=== PATIENT | male | born 1950 | race Caucasian/White ===

== ENCOUNTER → 2019-12-20 11:35 | Outpatient (CLI) | payer MEDICARE, OTHER, SELFPAY ==
[2019-12-20 11:57] LABS: Add Manual Diff / Slide Review NO; Basophils Absolute Auto 100 /uL (0-100); Basophils Percent Auto 1.2 % (0-2); Eosinophils Absolute Auto 300 /uL (0-450); Eosinophils Percent Auto 4.2 % (2-4); Hematocrit 43.1 % (41-53); Hemoglobin 15.1 g/dL (13.5-17.5); Lymphocytes Absolute Auto 2900 /uL (1100-4500); Lymphocytes Percent Auto 35.7 % (25-40); Mean Corpuscular Volume 88.8 fL (80-100); Monocytes Absolute Auto 500 /uL (0-900); Monocytes Percent Auto 6.7 % (3-14); Neutrophils Absolute Auto 4200 /uL (1500-7000); Neutrophils Percent Auto 52.2 % (50-75); Platelet Count 166 X10^3/uL (150-400); Red Blood Cell Count 4.86 X10^6/uL (4.5-5.9)
[2019-12-20 12:09] LABS: Alanine Aminotransferase 33 IU/L (<50); Albumin 4.4 g/dL (3.5-5.0); Albumin Globulin Ratio 1.4 (1.0-2.8); Alkaline Phosphatase 170 U/L (38-126); Aspartate Aminotransferase 34 IU/L (17-59); BUN Creatinine Ratio 17.6 (6-22); Blood Urea Nitrogen 12 mg/dL (9-20); Calcium 9.4 mg/dL (8.4-10.2); Carbon Dioxide 28 mmol/L (22-32); Chloride 99 mmol/L (98-107); Cholesterol 140 mg/dL (140-199); Estimated Glomerular Filt Rate > 60.0 mL/min (>60); Globulin 3.2 g/dL (1.7-4.1); Glucose 402 mg/dL (80-110); HDL Cholesterol 31 mg/dL (40-60); HEMOLYSIS < 15 (0-50); LDL Cholesterol Calculated 54 mg/dL (<100); Potassium 4.6 mmol/L (3.4-5.1); Sodium 135 mmol/L (137-145); Total Protein 7.6 g/dL (6.3-8.2); Triglycerides 273 mg/dL (35-150)
--- NOTE | 2019-12-20 13:22 | DI.CT.S_ITS ---
PROCEDURE: CT ABDOMEN PELVIS W CON INDICATIONS: Non-Hodgkins Lymphoma TECHNIQUE: After the administration of oral and intravenous contrast, 5 mm thick sections acquired from the diaphragms to the symphysis. 5 mm thick coronal and sagittal reformats were performed. For radiation dose reduction, the following was used: automated exposure control, adjustment of mA and/or kV according to patient size. COMPARISON: Prior studies are not available for comparison at this time. FINDINGS: Image quality: Excellent. ABDOMEN: Lung bases: Lung bases are clear. Heart size is normal. Pacemaker leads are seen in the region of right atrium and right ventricle, no pericardial effusion. Median sternotomy wires are also noted. Solid organs: Liver is normal in size. Mild hepatic steatosis is seen, no discrete hepatic lesion. Gallbladder is surgically absent. Biliary system is non-dilated. Pancreas enhances normally. Spleen is normal in size and enhancement. No adrenal nodules. Kidneys are normal in size and enhancement, without hydronephrosis. Peritoneum and bowel: There is a small hiatal hernia. Appendix is visualized and is within normal limits. Mild sigmoid diverticulosis is seen, no CT evidence of acute diverticulitis. Stomach, small bowel, and colon loops are normal in caliber and wall thickness. No free fluid or air. Nodes and vessels: No retroperitoneal or mesenteric adenopathy by size criteria are. Aorta and inferior vena cava are normal in caliber. Miscellaneous: Multiple right and left anterior abdominal wall defects are seen measures up to 5.7 cm in width in upper abdomen with herniation sacs containing fat only. PELVIS: Genitourinary: Bladder wall thickness is normal. Miscellaneous: No inguinal hernias or adenopathy by size criteria or. Subcentimeter lymph nodes are seen scattered in bilateral inguinal region measures up to 7 mm in short axis diameter.. Bones: No suspicious bony lesions. No vertebral body compression fractures. IMPRESSION: 1. No pathologically enlarged lymph nodes are seen in abdomen or pelvis on the current study. 2. Mild hepatic steatosis, no discrete hepatic lesion. Prior cholecystectomy. 3. Mild sigmoid diverticulosis, no CT evidence of acute diverticulitis. Small hiatal hernia. Normal appendix. No free fluid or free air. 4. Ventral hernia in the upper abdomen containing anterior wall of the distal stomach and fat. Additional anterior abdominal wall defects with multiple ventral hernias containing fat only. Dictated by: Bipin Dye M.D. on 12/25/2019 at 9:47 Approved by: Bipin Dye M.D. on 12/25/2019 at 10:06
[2019-12-20 13:31] LABS: TSH w/ Reflex to FT4 1.21 uIU/mL (0.47-4.68)
== END ==
PROVIDERS: Referring Provider Internal Medicine; Visit Provider Internal Medicine
DX: C85.83 Other specified types of non-Hodgkin lymphoma, intra-abdominal lymph nodes (principal); I47.2 Ventricular tachycardia; E78.2 Mixed hyperlipidemia; K76.0 Fatty (change of) liver, not elsewhere classified; K44.9 Diaphragmatic hernia without obstruction or gangrene; K57.30 Diverticulosis of large intestine without perforation or abscess without bleeding; K43.9 Ventral hernia without obstruction or gangrene; Z90.49 Acquired absence of other specified parts of digestive tract; Z95.0 Presence of cardiac pacemaker
CPT/HCPCS: 36415; 74177; 80053; 80061; 84443; 85025; Q9967

== ENCOUNTER 2023-09-12 12:58 | Day surgery (SDC) | payer MEDICARE, OTHER, SELFPAY ==
--- NOTE | 2023-09-12 | PATH_ITS ---
[facility] Accession Number: [id number] No. of containers..01 Tissue . 01 Material submitted: . colon - DESCENDING POLYP . 01 Diagnosis: DESCENDING COLON, POLYP: Tubular adenoma. [facility] 09/14/2023 1112 Local . 01 Electronically signed: . Hoa Leiva MD, Pathologist NPI- [id number] . 01 Gross description: . DESCENDING POLYP: Received in formalin is 1 fragment(s) of durbin, soft tissue measuring 0.8 x 0.6 x 0.4 cm submitted entirely in 1 cassette(s) /EM 09/13/20232038 Local . 01 Pathologist provided ICD-10: D12.4 . 01 CPT . 529511 Specimen Comment: A courtesy copy of this report has been sent to [phone] Performed at: 01 [facility] [address] [place] [address], [place], [place] [id number] MD Roland aBrajas MD Phone: [phone]
[2023-09-12 14:55] VITALS: BP 127/69; PULSE 61; RESP 12; TEMP 36.3; O2SAT 98
[2023-09-12] MEDS: LACTATED RINGERS 1,000 ML 42 ML IV (15:06)
--- NOTE | 2023-09-12 15:41 | P.OP.COLON_ITS ---
Operative Date/Time/Diagnoses Date of procedure: 09/12/23 Time of procedure: 15:54 Pre-op diagnosis: Colorectal screening Procedure & Clinicians Study performed: Colonoscopy Same procedure as scheduled: Yes Indications: Colorectal screening Surgeon: Bautista Bonilla Procedure Notes Procedure in detail: The history and physical was performed/updated and the patient is ASA class is 2. The procedure was discussed in detail with the patient. Potential risks complications including infection, bleeding, missed diagnosis, perforation, need for surgery, and were explained. Their questions were answered and informed consent was obtained. Patient was brought to the procedure room and placed standard monitoring equipment. The patient's vital signs were monitored continuously throughout the entire procedure. Prior to starting time-out was performed. The patient was placed in the left lateral recumbent position. Procedural sedation was administered by anesthesia. Examination began with a thorough inspection of the perianal area there was no evidence of fissures, fistulae, external hemorrhoids or cutaneous malignancy. The colonoscopy scope was then placed into the anal canal and was advanced to the cecum, which was identified by the ileocecal valve , the appendiceal orifice and the confluence of the taenia. The scope was then slowly withdrawn examining colon thoroughly in all directions, irrigating it of any residual stool. The scope was retroflexed within the rectum The patient tolerated the procedure well. They will be discharged once criteria are met. The prep was of good/excellent quality. The withdrawl time was 9 minutes. FINDINGS * Descending colon polyp-3-5 mm removed with biopsy forceps * Internal hemorrhoids Specimen(s): other (Descending colonic polyp) Impression: Colonic polyp x1 Post-procedure Plan for aftercare: Follow-up is dependent on pathology findings Disposition: same day surgery
--- NOTE | 2023-09-12 15:41 | PM.HP.1 ---
History of Present Illness History of Present Illness Date Patient Seen: 09/12/23 Time Patient Seen: 15:41 Chief complaint: SDC Narrative: 73-year-old man here for screening colonoscopy. No previous colonoscopy he perhaps had sigmoidoscopy in the remote past. No abdominal concerns. No family history of intestinal malignancy. [facility] Medical History (Updated 09/12/23 @ 14:47 by Irvin Mcarthur RN) Diabetes mellitus, type 2 ICD (implantable cardioverter-defibrillator) in place Hyperlipidemia Hypertension Myocardial infarct Retroperitoneal sarcoma Surgical History (Updated 09/12/23 @ 14:47 by Irvin Mcarthur RN) Hx of cholecystectomy S/P triple vessel bypass Social History Smoking Status: Former smoker alcohol intake: never Meds Home Medications and Allergies Home Medications Medication Instructions Recorded Confirmed Type aspirin 81 mg capsule 81 mg PO DAILY 09/12/23 09/12/23 History carvedilol 3.125 mg tablet 3.125 mg PO BID 09/12/23 09/12/23 History enalapril maleate 2.5 mg tablet 2.5 mg PO DAILY 09/12/23 09/12/23 History ezetimibe 10 mg tablet 10 mg PO DAILY 09/12/23 09/12/23 History metformin 1,000 mg tablet 1,000 mg PO BID 09/12/23 09/12/23 History rosuvastatin 40 mg tablet 40 mg PO DAILY 09/12/23 09/12/23 History Allergies Allergy/AdvReac Type Severity Reaction Status Date / Time Penicillins Allergy Unknown childhood Verified 09/12/23 14:43 rxn Exam Vital Signs (past 8 hours): - 09/12/23 14:55 Temperature 97.3 F L Pulse Rate 61 Respiratory Rate 12 Blood Pressure 127/69 Pulse Oximetry 98 Oxygen Delivery Method Room Air Oxygen Delivery Method Room Air Narrative Exam Narrative: General adult man alert oriented no acute distress Chest nonlabored respiration Extremities warm well perfused Assessment & Plan Assessment & Plan narrative: The patient requires colorectal screening and colonoscopy is recommended. Technical details were discussed. Risks, benefits, alternatives explained. Risks including but not limited to myocardial infarction, aspiration, bleeding, pain, missed lesion, incomplete examination, need for further radiographic studies, colonic perforation, and need for major abdominal surgery were discussed. All questions were answered to their satisfaction, and they are in agreement with this plan.
[2023-09-12 16:12] VITALS: BP 100/60; PULSE 66; RESP 16; TEMP 37; O2SAT 96
[2023-09-12 16:17] VITALS: BP 101/63; PULSE 62; RESP 18; O2SAT 96
[2023-09-12 16:22] VITALS: BP 115/71; PULSE 71; RESP 18; TEMP 36.4; O2SAT 96
[2023-09-12 16:27] VITALS: BP 132/75; PULSE 64; RESP 18; O2SAT 97
== END 2023-09-12 16:40 | disposition home or self-care (01) ==
PROVIDERS: PCP Internal Medicine; Referring Provider Surgery; Visit Provider Surgery
PROC: 0DJD8ZZ Inspection of Lower Intestinal Tract, Via Natural or Artificial Opening Endoscopic (ICD-10-PCS; CPT 45378; principal; 2023-09-12 14:00)
DX: Z12.11 Encounter for screening for malignant neoplasm of colon (principal); K64.8 Other hemorrhoids; D12.4 Benign neoplasm of descending colon
CPT/HCPCS: 45380; J2704

== ENCOUNTER → 2023-11-07 09:54 | Outpatient (CLI) | payer MEDICARE, SELFPAY ==
[2023-11-07 10:34] LABS: Hematocrit 40.1 % (41-53); Hemoglobin 13.7 g/dL (13.5-17.5); Mean Corpuscular HGB Conc 34.2 % (30-36); Mean Corpuscular Hemoglobin 31.4 PG (26-34); Platelet Count 195 X10^3/uL (150-400); Red Blood Cell Count 4.36 X10^6/uL (4.5-5.9); Red Cell Distribution Width 13.9 % (11.6-14.8); White Blood Cell Count 7.7 X10^3/uL (4.5-11.0)
[2023-11-07 10:43] LABS: Hemoglobin A1C% w Est Avg Glu 7.3 % (4.0-6.0)
[2023-11-07 10:48] LABS: HEMOLYSIS < 15 (0-50)
[2023-11-07 11:01] LABS: Alanine Aminotransferase 106 IU/L (<50); Albumin 4.6 g/dL (3.5-5.0); Albumin Globulin Ratio 1.8 (1.0-2.8); Alkaline Phosphatase 94 U/L (38-126); Aspartate Aminotransferase 97 IU/L (17-59); BUN Creatinine Ratio 21.3 (6-22); Bilirubin Total 2.2 mg/dL (0.2-1.3); Blood Urea Nitrogen 19 mg/dL (9-20); Calcium 9.8 mg/dL (8.4-10.2); Carbon Dioxide 25 mmol/L (22-32); Chloride 106 mmol/L (98-107); Cholesterol 99 mg/dL (140-199); Estimated Glomerular Filt Rate > 60 mL/min (>60); Globulin 2.6 g/dL (1.7-4.1); Glucose 139 mg/dL (80-110); HDL Cholesterol 34 mg/dL (40-60); LDL Cholesterol Calculated 25 mg/dL (<100); Potassium 4.6 mmol/L (3.4-5.1); Sodium 139 mmol/L (137-145); Total Protein 7.2 g/dL (6.3-8.2); Triglycerides 198 mg/dL (35-150)
[2023-11-07 11:25] LABS: TSH w/ Reflex to FT4 0.84 uIU/mL (0.47-4.68)
[2023-11-07 11:26] LABS: Creatinine Urine Random 92.3 mg/dL
[2023-11-07 11:31] LABS: Microalbumi Creatinin Ratio Ur 165.7 ug/mg CR (<30); Microalbumin Urine Random 15.3 mg/dL (0-1.6)
[2023-11-07 20:11] LABS: Prostate Specific Antigen 0.608 ng/mL (0.10-4.00)
[2023-11-07 20:30] LABS: Vitamin B12 389 pg/mL (239-931)
== END ==
PROVIDERS: PCP Internal Medicine; Referring Provider Internal Medicine; Visit Provider Internal Medicine
DX: C48.0 Malignant neoplasm of retroperitoneum (principal); E11.69 Type 2 diabetes mellitus with other specified complication; I25.10 Atherosclerotic heart disease of native coronary artery without angina pectoris; N40.1 Benign prostatic hyperplasia with lower urinary tract symptoms; E78.5 Hyperlipidemia, unspecified; E53.8 Deficiency of other specified B group vitamins; N13.8 Other obstructive and reflux uropathy
CPT/HCPCS: 36415; 80053; 80061; 82043; 82570; 82607; 83036; 84153; 84443; 85027

== ENCOUNTER → 2023-11-16 10:09 | Outpatient (CLI) | payer MEDICARE, OTHER, SELFPAY ==
[2023-11-16 12:41] LABS: Alanine Aminotransferase 69 IU/L (<50); Albumin 4.7 g/dL (3.5-5.0); Albumin Globulin Ratio 1.7 (1.0-2.8); Alkaline Phosphatase 81 U/L (38-126); Aspartate Aminotransferase 57 IU/L (17-59); Bilirubin Unconjugated 1.8 mg/dL (0.0-1.1); Gamma Glutamyl Transpeptidase 35 U/L (15-73); Globulin 2.8 g/dL (1.7-4.1); HEMOLYSIS < 15 (0-50); Total Protein 7.5 g/dL (6.3-8.2)
[2023-11-18 01:16] LABS: HBsAg Screen Negative (Negative); Hepatitis A Antibody IgM Negative (Negative); Hepatitis B Core Antibody IgM Negative (Negative); Hepatitis C Antibody Non Reactive (Non Reactive)
== END ==
PROVIDERS: PCP Internal Medicine; Referring Provider Internal Medicine; Visit Provider Internal Medicine
DX: R79.89 Other specified abnormal findings of blood chemistry (principal)
CPT/HCPCS: 36415; 80074; 80076; 82977

== ENCOUNTER → 2024-05-08 08:56 | Outpatient (CLI) | payer MEDICARE, SELFPAY ==
[2024-05-08 10:02] LABS: Hemoglobin A1C% w Est Avg Glu 6.8 % (4.0-6.0)
[2024-05-08 10:16] LABS: Alanine Aminotransferase 81 IU/L (<50); Albumin 4.2 g/dL (3.5-5.0); Albumin Globulin Ratio 1.7 (1.0-2.8); Alkaline Phosphatase 77 U/L (38-126); Aspartate Aminotransferase 66 IU/L (17-59); Bilirubin Total 1.4 mg/dL (0.2-1.3); Blood Urea Nitrogen 18 mg/dL (9-20); Calcium 10.1 mg/dL (8.4-10.2); Carbon Dioxide 30 mmol/L (22-32); Chloride 100 mmol/L (98-107); Estimated Glomerular Filt Rate > 60 mL/min (>60); Globulin 2.5 g/dL (1.7-4.1); Glucose 137 mg/dL (80-110); HEMOLYSIS < 15 (0-50); Potassium 4.9 mmol/L (3.4-5.1); Sodium 137 mmol/L (137-145); Total Protein 6.7 g/dL (6.3-8.2)
== END ==
PROVIDERS: PCP Internal Medicine; Referring Provider Internal Medicine; Visit Provider Internal Medicine
DX: R79.89 Other specified abnormal findings of blood chemistry (principal); E11.69 Type 2 diabetes mellitus with other specified complication; I25.810 Atherosclerosis of coronary artery bypass graft(s) without angina pectoris; I10 Essential (primary) hypertension; E78.2 Mixed hyperlipidemia
CPT/HCPCS: 36415; 80053; 83036

== ENCOUNTER → 2024-05-14 08:00 | Outpatient (CLI) | payer MEDICARE, OTHER, SELFPAY ==
--- NOTE | 2024-05-14 08:01 | DI.CT.S_ITS ---
PROCEDURE: CT ABDOMEN PELVIS W CON INDICATIONS: history of retroperitoneal sarcoma TECHNIQUE: After the administration of intravenous contrast, axial sections acquired from the lung bases to the pubic symphysis. Coronal and sagittal reformats were performed. For radiation dose reduction, the following was used: automated exposure control, adjustment of mA and/or kV according to patient size. COMPARISON: [facility], CT, CT ABDOMEN PELVIS W CON, 12/20/2019, 13:21. FINDINGS: Image quality: Diagnostic. Lower Chest: No significant findings. ABDOMEN: Liver: No solid mass. Gallbladder: Absent. Biliary ducts: No biliary dilation. Pancreas: No ductal dilation. 1.3 centimeter cystic lesion in the pancreatic body (series 2, image 37), previously 0.6 centimeter. Additional subcentimeter cystic lesions are present. Spleen: Size is within normal limits. Adrenal Glands: No adrenal nodules. Kidneys and Ureters: No hydronephrosis. No solid mass. No complex renal cystic lesion which requires follow up. Stomach and Bowel: Normal colonic caliber, without significant wall thickening. Colonic diverticulosis without evidence of diverticulitis. Peritoneum: No abnormal intraperitoneal fluid. No free air. Ventral Wall: Multiple ventral hernias are again seen, extending from the subxiphoid space to the umbilicus. Of note, the periumbilical hernia contains a knuckle of small bowel wall, with the neck measuring 2.2 centimeter and the sac measuring 3.8 x 1.8 centimeter. Additionally, the subxiphoid hernia containing a knuckle of the gastric body wall, the neck measuring 4.7 centimeters and the sac measuring 1.1 x 4.2 centimeters. Abdominal Nodes: No retroperitoneal or mesenteric adenopathy by size criteria. Vessels: Aorta and inferior vena cava are normal in size. PELVIS: Pelvic Organs: Unremarkable. Bladder: No bladder wall thickening, accounting for underdistention. Pelvic Nodes: No enlarged lymph nodes. Miscellaneous: Small right inguinal hernia containing fat. Bones: No aggressive osseous abnormality. 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 1.3 centimeter cystic lesion in the pancreatic body, with interval growth compared with 2019. While findings probably represent a side branch IPMN, consider complete evaluation with MRI (pancreatic mass protocol), per consensus guidelines. Multiple wide-mouth ventral hernias. One contains a short segment of nonobstructed small bowel wall, and another contains a short segment of stomach wall. Dictated by: Terrance Parker M.D. on 05/14/2024 at 12:02 Approved by: Terrance Parker M.D. on 05/14/2024 at 12:12
== END ==
PROVIDERS: PCP Internal Medicine; Referring Provider Internal Medicine; Visit Provider Internal Medicine
DX: C48.0 Malignant neoplasm of retroperitoneum (principal); K86.2 Cyst of pancreas; K40.90 Unilateral inguinal hernia, without obstruction or gangrene, not specified as recurrent; K42.9 Umbilical hernia without obstruction or gangrene; K43.9 Ventral hernia without obstruction or gangrene; K57.90 Diverticulosis of intestine, part unspecified, without perforation or abscess without bleeding; Z90.49 Acquired absence of other specified parts of digestive tract
CPT/HCPCS: 74177; Q9967

== ENCOUNTER → 2024-11-13 10:31 | Outpatient (CLI) | payer MEDICARE, OTHER, SELFPAY ==
[2024-11-13 12:04] LABS: Aspartate Aminotransferase 71 IU/L (17-59); BUN Creatinine Ratio 18.9 (6-22); Blood Urea Nitrogen 23 mg/dL (9-20); Calcium 9.5 mg/dL (8.4-10.2); Carbon Dioxide 26 mmol/L (22-32); Chloride 103 mmol/L (98-107); Estimated Glomerular Filt Rate > 60 mL/min (>60); Glucose 170 mg/dL (70-99); HEMOLYSIS < 15 (0-50); Sodium 139 mmol/L (137-145)
[2024-11-13 12:18] LABS: Hemoglobin A1C% w Est Avg Glu 6.9 % (4.0-6.0)
[2024-11-13 12:32] LABS: Prostate Specific Antigen 0.546 ng/mL (0.10-4.00)
[2024-11-13 12:43] LABS: Microalbumin Urine Random 11.4 mg/dL (0-1.6)
[2024-11-13 12:51] LABS: Vitamin B12 376 pg/mL (239-931)
== END ==
PROVIDERS: PCP Internal Medicine; Referring Provider Internal Medicine; Visit Provider Internal Medicine
DX: E11.69 Type 2 diabetes mellitus with other specified complication (principal); N40.1 Benign prostatic hyperplasia with lower urinary tract symptoms; E78.5 Hyperlipidemia, unspecified; E78.2 Mixed hyperlipidemia; N13.8 Other obstructive and reflux uropathy
CPT/HCPCS: 36415; 80048; 82043; 82570; 82607; 83036; 84153; 84450

== ENCOUNTER → 2025-05-13 09:42 | Outpatient (CLI) | payer MEDICARE, SELFPAY ==
[2025-05-13 10:30] LABS: Hemoglobin A1C% w Est Avg Glu 7.4 % (4.0-6.0)
[2025-05-13 10:43] LABS: Blood Urea Nitrogen 22 mg/dL (9-20); Calcium 9.7 mg/dL (8.4-10.2); Carbon Dioxide 28 mmol/L (22-32); Chloride 102 mmol/L (98-107); Estimated Glomerular Filt Rate > 60 mL/min (>60); Glucose 192 mg/dL (70-99); HEMOLYSIS 20 (0-50); Potassium 4.6 mmol/L (3.4-5.1); Sodium 137 mmol/L (137-145)
== END ==
PROVIDERS: PCP Internal Medicine; Referring Provider Internal Medicine; Visit Provider Internal Medicine
DX: E11.59 Type 2 diabetes mellitus with other circulatory complications (principal)
CPT/HCPCS: 36415; 80048; 83036